=== PATIENT | female | born 1965 | race Caucasian/White ===

== ENCOUNTER 2025-01-30 06:34 | Day surgery (SDC) | payer OTHER, MEDICARE ==
[~2025-01-30] VITALS: Ht 170.2 cm; Wt 69.1 kg
[~2025-01-30 06:34] MED LIST: AIRBORNE TABLE1 EACH PO; CALCIUM500 MG PO; COL-RITE100 MG PO; HYDROCORTISONE30 G1 PR; KETOCONAZOLE15 GM; LACTATED RINGER'S 1,000 ML IV SCH; LAMICTAL150 MG PO; LEVETIRACETAM500 M1 PO; LORAZEPAM1 MG PO; NYAMYC15 GM; OMEPRAZOLE20 MG PO; ONDANSETRON ODT8 MG PO; TRIAMCINOLONE A15 GM; TYLENOL EXTRA500 MG PO; VITAMIN D3125 MC2 PO; [UNRECOGNIZED DRUG - OTHER]
[2025-01-30] MEDS ORDERED: IBLOOD GLUCOSE TEST STRIP 1 EA TEST VI PRN (07:00)
[2025-01-30] MEDS ORDERED: LIDOCAINE HCL 1% 5 ML SDV INJ ONE (07:00)
[2025-01-30 07:05] VITALS: BP 132/92
--- NOTE | 2025-01-30 07:24 | NUR ---
MANAGER POOL WITH PT SHE LIVES AT [facility]. JOSHUA MANAGER POOL
[2025-01-30] MEDS ORDERED: fentaNYL citrate 100 MCG/2 ML VIAL ONE (08:31)
[2025-01-30] MEDS ORDERED: ACETAMINOPHEN 1,000 MG/100 ML VIAL ONE (08:32)
[2025-01-30] MEDS ORDERED: ondansetron HCL 4 MG/2 ML VIAL ONE (08:32)
[2025-01-30] MEDS ORDERED: dexmedeTOMIDine HCl 200 MCG/2 ML VIAL ONE (08:32)
[2025-01-30] MEDS ORDERED: DEXAMETHASONE SOD PHOS 4 MG/ML VIAL ONE (08:32)
[2025-01-30] MEDS ORDERED: propofoL 200 MG/20 ML VIAL ONE (08:32)
[2025-01-30] MEDS ORDERED: LIDOCAINE HCL 2% 5 ML SDV ONE (08:32)
[2025-01-30] MEDS ORDERED: ROCURONIUM BROMIDE 50 MG/5 ML SYR ONE (08:32)
[2025-01-30] MEDS ORDERED: SEVOFLURANE 250 ML BTL INH ONE (09:33)
[2025-01-30] MEDS ORDERED: SUGAMMADEX SODIUM 200 MG/2 ML ML ONE ×2 (09:33→12:06)
[2025-01-30] MEDS ORDERED: NALOXONE HCL 0.4 MG/ML VIAL ONE (09:48)
[2025-01-30 12:53] VITALS: BP 141/78
--- NOTE | 2025-01-30 13:03 | NUR ---
01/30/25 1303 Angelica Jones 1220-PT ARRIVES TO PACU VIA STRETCHER, RESTING SEMI FOWLERS, P-T RESPONSIVE TO STIMULI BUT RESTS W/ EYES CLOSED, VSS ON 6L VIA MASK, RR EVEN AND UNLABORED. 1230-PT AWAKENS TO VOICE, TITRATED TO RA, VS REMAIN STABLE, PT DENIES PAIN OR NAUSEA. 1245-PT RESTING W/ EYES CLOSED BUT AWAKENS EASLIY TO VOICE, DENIES PAIN OR NAUSEA, VSS ON RA. 1255-PT TAKEN BACK TO DAY SURGERY VIA STRETCHER, BEDSIDE REPORT GIVEN TO RN, ALL QUESTIONS ANSWERED.
--- NOTE | 2025-01-30 13:06 | NUR ---
PT SLIGHTLY NODS HEAD. MAGAZINE REPAIRER ANSWERS WITH PT.
--- NOTE | 2025-01-30 13:24 | NUR ---
DISPENSING OPTICIAN STATES SHES VERY PICKY AND WONT TAKE THIS WATER OR EAT JELLO ETC. WANTS TO GO HOME.
[2025-01-30 13:32] VITALS: BP 146/83
--- NOTE | 2025-01-30 13:34 | NUR ---
UP TO BR VOIDS QS. STATES SHE WANTS [employer] JELLO WITH WHIPPED CREAM ON. REAdy to go home dressed.
--- NOTE | 2025-01-30 13:34 | NUR ---
pt adamant about leaving. dcd per wc to van with long term care phlebotomist. is alert walking and talking refuses to take anything that is available here wants her own food.
== END 2025-01-30 13:40 | disposition home or self-care (01) ==
LOC: DS 06:34 → OPS 06:34 → DS 09:15 → OPS 13:40
PROVIDERS: ATTEND Dentist General Practice
PROC: 0CDWXZ2 Extraction of Upper Tooth, All, External Approach (ICD-10-PCS; 2025-01-30)
PROC: 0CDXXZ2 Extraction of Lower Tooth, All, External Approach (ICD-10-PCS; principal; 2025-01-30 09:15)
DX: K02.9 Dental caries, unspecified (principal); I51.7 Cardiomegaly; G40.909 Epilepsy, unspecified, not intractable, without status epilepticus; F09 Unspecified mental disorder due to known physiological condition; Z88.1 Allergy status to other antibiotic agents; Z88.8 Allergy status to other drugs, medicaments and biological substances
CPT/HCPCS: 00170; J0131; J1100; J2003; J2310; J2405; J2704; J3010; J3490; J7121

== ENCOUNTER 2025-08-28 07:10 | Day surgery (SDC) | payer MEDICARE, OTHER ==
[~2025-08-28] VITALS: Ht 152.4 cm; Wt 70.8 kg
[~2025-08-28 07:10] MED LIST changes: +ANASTROZOLE1 MG PO; -COL-RITE100 MG PO; +COLACE100 MG PO; +EVENITY (2210 MG/2.3 SUB-Q; +FERROUS GLUCON324 M1 PO; +GABAPENTIN300 MG PO; -HYDROCORTISONE30 G1 PR; +HYDROCORTISONE30 G1 TOP; +IBLOOD GLUCOSE TEST STRIP 1 EA TEST VI PRN; -KETOCONAZOLE15 GM; +KETOCONAZOLE15 GM TOP; +LIDOCAINE HCL 1% 5 ML SDV INJ ONE; -NYAMYC15 GM; +NYAMYC15 GM TOP; +PERCOCET 5-3251 EACH PO; -TRIAMCINOLONE A15 GM; +TRIAMCINOLONE A15 GM TOP; -[UNRECOGNIZED DRUG - OTHER]; +[UNRECOGNIZED DRUG - OTHER] TOP
[2025-08-28 07:26] VITALS: BP 113/60
[2025-08-28] MEDS ORDERED: VALTOCO20 MG/0.2 PR (07:36)
[2025-08-28] MEDS ORDERED: fentaNYL citrate 100 MCG/2 ML VIAL ONE (07:40)
[2025-08-28] MEDS ORDERED: MIDAZOLAM HCL 2 MG/2 ML VIAL ONE (07:40)
[2025-08-28] MEDS ORDERED: LIDOCAINE HCL 2% 5 ML SDV ONE (07:40)
[2025-08-28] MEDS ORDERED: ROCURONIUM BROMIDE 50 MG/5 ML SYR ONE (07:40)
[2025-08-28] MEDS ORDERED: SUGAMMADEX SODIUM 200 MG/2 ML ML ONE (07:40)
[2025-08-28] MEDS ORDERED: NALOXONE HCL 0.4 MG SYR IV PRN (09:15)
[2025-08-28] MEDS ORDERED: fentaNYL citrate 50 MCG/ML SDV IV PRN (09:15)
[2025-08-28] MEDS ORDERED: IBLOOD GLUCOSE TEST STRIP 1 EA TEST VI PRN (09:15)
[2025-08-28] MEDS ORDERED: PROCHLORPERAZINE EDISYLATE 10 MG/2 ML VIAL IV PRN (09:15)
--- NOTE | 2025-08-28 10:42 | NUR ---
08/28/25 1042 Janina Driscoll 1016 PT ARRIVED TO PACU ON 6L VIA MASK, ORAL AIRWAY IN PLACE. RESP EVEN AND UNLABORED. 1019 PT WAKES AND STARTS REACHING FOR ORAL AIRWAY, ORAL AIRWAY REMOVED PT STARTS COUGHING SOME, DEEP BREATHING ENCOURAGED. 1022 O2 MASK REMOVED. PT FALLS ASLEEP EASILY. RN WAKES PT OFF AND ON TO ENCOURAGE DEEP BREAHTING, PT ABLE TO FOLLOW DIRECTIONS. 1036 HOB INCREASED, PT ASKING FOR WATER. PT SIPPING WATER WITH NO CONCERNS. SHALLOW BREATHING WITH DECREASED RATE NOTED OFF AND ON, O2 SAT DECREASES TO UPPER 80S. DEEP BREATHING ENCOURAGED. 1040 PT RESTING WITH EYES CLOSED. O2 DECREASED TO 89%. RN WAKES PT AND ENCOURAGES A LARGE COUGH, PT ABLE TO DO SO. O2 INCREASED TO UPPER 90S.
[2025-08-28 11:17] VITALS: BP 153/77
--- NOTE | 2025-08-28 11:22 | NUR ---
1110- REPORT GIVEN BY SIGNALMAN. PT AWAKE BUT DROWSY. RESP EQUAL AND UNLABORED. VS, IV, AND SITES NOTED. PT ARRIVED ON 2LPM O2 VIA NC AND SAT NOTED IN VS. SIGNALMAN REPORTS DROPS IS SPO2 TO HIGH 80S DURING RECOVERY. RN REMOVED NC TO DO ROOM AIR TRIAL AND REMAIN AT BEDSIDE. PT COMPLAINT OF SORE THROAT BUT REPORTS NO OTHER PAIN. 1127- RN AT BEDSIDE MONITORING WHILE CHARTING DURING PT ROOM AIR TRIAL. PT SATS IN 94-98% RANGE ON RA. SNACKS AND DRINK PROVIDED PER PT PREFERENCE. DC CRITERIA COMMUNICATED TO PT AND PT PERSONAL DEVELOPMENT EDUCATOR, BOTH VERBALIZED UNDERSTANDING. CALL LIGHT IN REACH, PERSONAL DEVELOPMENT EDUCATOR AT BEDSIDE.
[2025-08-28 12:19] VITALS: BP 145/78
--- NOTE | 2025-08-28 12:39 | NUR ---
1125- ASSISTED PT TO RESTROON PER REQUEST. PT AMBULATED WITHOUT DIFFICULTY AND VOIDED 600ML CLEAR YELLOW URINE. PT WALKED BACK TO BED AND TUCKED IN. CALL LIGHT IN REACH. 1215- PT VITALS AND HOURLY PHASE II NOTED. PT DC EDUCATION PROVIDED. PT AND PT ARTIFICIAL INTELLIGENCE SPECIALIST VERBALIZED UNDERSTANDING. IV REMOVED AND PT ASSISTED WITH GETTING DRESSED BY PT ARTIFICIAL INTELLIGENCE SPECIALIST. 1235- PT TRANSFERED TO WHEELCHAIR WITHOUT ISSUE OR DIFFICULTY. PT TAKEN VIA WHEELCHAIR TO FRONT OF HOSPITAL BY SRT. PT ARTIFICIAL INTELLIGENCE SPECIALIST TO DRIVE PT HOME.
[2025-08-28] MEDS ORDERED: SEVOFLURANE 250 ML BTL INH ONE (14:40)
== END 2025-08-28 12:35 | disposition home or self-care (01) ==
LOC: DS 07:10
PROVIDERS: ATTEND Dentist General Practice
PROC: 0CRXXJ1 Replacement of Lower Tooth, Multiple, with Synthetic Substitute, External Approach (ICD-10-PCS; principal; 2025-08-28 09:30)
DX: K02.9 Dental caries, unspecified (principal); G40.909 Epilepsy, unspecified, not intractable, without status epilepticus; M81.0 Age-related osteoporosis without current pathological fracture; E11.9 Type 2 diabetes mellitus without complications; Z88.1 Allergy status to other antibiotic agents; Z88.8 Allergy status to other drugs, medicaments and biological substances
CPT/HCPCS: J2003; J2250; J2405; J2704; J3010; J3490